=== PATIENT | male | born 1975 | race African-American/Black ===

== ENCOUNTER 2024-11-26 18:50 | Emergency (ER) | payer OTHER ==
[2024-11-26 19:01] VITALS: BP 132/75; PULSE 82; RESP 16; TEMP 97.8; BMI 30.9
[2024-11-26] MEDS ORDERED: LIDOCAINE 5% TOPICAL PATCH ONE (19:39)
[2024-11-26] MEDS ORDERED: IBUPROFEN 400 MG TABLET (FP) PO ONE (19:39)
[2024-11-26] MEDS: LIDOCAINE 5% TOPICAL PATCH TP ONE (19:50)
[2024-11-26] MEDS: IBUPROFEN 400 MG TABLET (FP) PO ONE (19:50)
[2024-11-26] MEDS ORDERED: LIDOCAINE PATCH REMOVAL MC SCH (22:00)
== END 2024-11-26 20:12 | disposition home or self-care (01) ==
LOC: FER 18:50
DX: S16.1XXA Strain of muscle, fascia and tendon at neck level, initial encounter (principal); S13.4XXA Sprain of ligaments of cervical spine, initial encounter; V89.2XXA Person injured in unspecified motor-vehicle accident, traffic, initial encounter; Y92.410 Unspecified street and highway as the place of occurrence of the external cause
CPT/HCPCS: 99283-25